=== PATIENT | male | born 2000 | race Hispanic/Latino ===

== ENCOUNTER 2023-01-11 23:18 | Emergency (ER) | payer OTHER ==
[~2023-01-11] VITALS: Ht 182.9 cm; Wt 90.7 kg
[2023-01-11 23:30] VITALS: TEMP 98.3
[2023-01-12 00:08] LABS: POTASSIUM 4.5 mmol/L (3.6-5.2); SODIUM 139 mmol/L (136-145)
[2023-01-12 00:50] LABS: PLATELET COUNT 335 K/uL (142-355)
[2023-01-12 02:56] VITALS: BP 112/64
== END 2023-01-12 02:56 | disposition home or self-care (01) ==
LOC: ED 23:18
PROVIDERS: Emergency Medicine
DX: F10.129 Alcohol abuse with intoxication, unspecified (principal); Y90.6 Blood alcohol level of 120-199 mg/100 ml; F43.9 Reaction to severe stress, unspecified
CPT/HCPCS: 36415; 80053; 80307; 80320; 82150; 83690; 84484; 85027; 93005; 96361; 96374; 99284; J2405

== ENCOUNTER 2023-03-11 21:00 | Emergency (ER) | payer OTHER ==
[~2023-03-11] VITALS: Ht 182.9 cm; Wt 96.2 kg
[2023-03-11 21:32] LABS: PLATELET COUNT 261 K/uL (142-355)
[2023-03-11 21:45] LABS: POTASSIUM 3.5 mmol/L (3.6-5.2); SODIUM 139 mmol/L (136-145)
[2023-03-12 10:01] VITALS: BP 121/75; TEMP 97.3
== END 2023-03-12 13:30 | disposition still patient (30) ==
LOC: ED 21:00
PROVIDERS: Emergency Medicine
DX: F32.A Depression, unspecified (principal); R45.851 Suicidal ideations; F43.10 Post-traumatic stress disorder, unspecified; Z72.0 Tobacco use
CPT/HCPCS: 36415; 80053; 80143; 80179; 80307; 80320; 81002; 85027; 87635; 99285; U0003